=== PATIENT | male | born 1975 | race Caucasian/White ===

== ENCOUNTER 2022-08-13 20:49 | Emergency (ER) | payer SELFPAY ==
[~2022-08-13] VITALS: Ht 172.7 cm; Wt 74.0 kg
[2022-08-13 21:36] LABS: BASOPHILS % 0.3 % (0.0-2.0); HEMATOCRIT. 41.6 % (42.0-52.0); HEMOGLOBIN. 14.4 g/dL (14.0-18.0); LYMPHOCYTES % 21.7 % (20.0-50.0); MEAN CORPUSCULAR HEMOGLOBIN 30.6 pg (28.0-32.0); MEAN CORPUSCULAR VOLUME 88.5 fL (80.0-94.0); MEAN PLATELET VOLUME 8.2 fl (7.4-10.4); MONOCYTES % 5.3 % (2.0-8.0); NEUTROPHILS % 71.7 % (40.0-76.0); PLATELET 184 x1000/uL (130-400); RED CELL DISTRIBUTION WIDTH 14.1 % (11.6-14.6)
[2022-08-13 21:47] LABS: CHLORIDE 105 mEq/L (98-107)
[2022-08-13 22:52] VITALS: BP 144/79
== END 2022-08-13 22:52 | disposition home or self-care (01) ==
LOC: ER 20:49
DX: F41.9 Anxiety disorder, unspecified (principal); F10.90 Alcohol use, unspecified, uncomplicated; Y90.9 Presence of alcohol in blood, level not specified
CPT/HCPCS: 36415; 71045; 80053; 84484; 85025; 93005; 99285